=== PATIENT | male | born 1985 | race Caucasian/White ===

== ENCOUNTER 2017-09-17 14:11 | Emergency (ER) | payer SELFPAY ==
[2017-09-17 14:16] VITALS: BP 125/59
[2017-09-17 14:21] VITALS: BMI 29.8
--- NOTE | 2017-09-17 14:37 | DR.MBACK ---
HPI - Time Seen Time seen: 14:30 - PCP Primary Care Physician: NFD - Complaint Chief Complaint Doctors Comments: He states the initiating factoe was that he slid while in a shower, Pain is described as sharp and is non-radiating. 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 He does not have impairment of urination or BM. Chief Complaint:: PATIENT C/O LOWER AND MIDDLE BACK PAIN THAT STARTED 1 WEEK AGO. PATIENT STATES THAT THE PAIN IS WORSE WHEN MOVING Self Treatment fo Chief Complaint: ALEVE AND EXTRA STRENGTH TYLENOL - Reviewed Nurses Notes Review: Yes - Source History Provided: Patient - Mode of Arrival Mode of Arrival: Ambulatory - Timing Onset of Chief Complaint: 09/10/17 - Modifying Factors Worsened By: Twisting PMH - PMH Past Medical History: Yes Past Medical History: Headaches Past Medical History Comment: HYPERLIPIDEMIA Past Surgical History: No - Family History History of Family Medical Conditions: Yes Family Medical History: Diabetes Mellitus Family Medical History Comment: SEIZURES - Social History Alcohol Use: None Do you use any recreational Drugs:: No Lives With: Family Lives Where: Home - infectious screening In the last 2 months have you had wt loss of >10#?: NO Have you had fever, night sweats or hemotysis?: No Have you traveled outside the country in the last 6 months?: No ROS - Review of Systems Constitutional: No Symptoms Reported Eyes: No Symptoms Reported ENTM: No Symptoms Reported Respiratoy: No Symptoms Reported Cardiovascular: No Symptoms Reported Gastrointestinal/Abdominal: No Symptoms Reported Genitourinary: No Symptoms Reported Neurological: No Symptoms Reported Musculoskeletal: Back Pain Integumentary: No Symptoms Reported Hematologic/Lymphatic: No Symptoms Reported Endocrine: No Symptoms Reported Psychiatric: No Symptoms Reported All Other Systems: Reviewed and Negative PE - Vital Signs Vitals: Temperature 97.8 F Pulse Rate [Left Brachial] 73 Pulse Rate 73 Respiratory Rate 22 Blood Pressure [Left Arm] 125/59 Blood Pressure [Right Arm] 165/81 Blood Pressure 125/59 O2 Sat by Pulse Oximetry 97 - General Limitations: No Limitations General Appearance: Alert, In No Apparent Distress - Head Head Exam: Normal Inspection - Eyes Eye exam: Normal Appearance - ENT ENT Exam: Normal Exam - Chest Chest Inspection: Normal Inspection - Respiratory Respiratory Exam: Normal Lung Sounds Bilat - Cardiovascular Cardiovascular Exam: Regular Rate, Normal Rhythm, +S1, +S2 - Abdominal Exam Abdominal Exam: Normal Inspection, Normal Bowel Sounds, Soft - Rectal Rectal Exam: Deferred - Genitourinary Exam: Male: Deferred - Extremities Extremities Exam: Normal Inspection - Back Back Exam: Normal Inspection, Muscle Spasm (lumbar paravertebral muscles) - Neurological Neurological Exam: Alert, Oriented X3 - Psychiatric Psychiatric Exam: Normal Affect, Normal Mood - Skin Skin Exam: Warm, Dry, Intact, Normal Color ROR - XRAY XRAY Interpreted by: Radiologist (No significant bony abnormalities.), Self ( Lt. elbow x-ray: No bone lesion(s).) - Diagnosis Discharge Problem: Back strain - Discharge Plan Disposition: HOME, SELF-CARE Condition: Stable - Follow ups/Referrals Follow ups/Referrals: NFD,None [Primary Care Provider] - 3 days - Instructions Instructions: Muscle Strain, [id number]
[2017-09-17] MEDS ORDERED: TORADOL 60 MG VIAL IM ONE (14:38)
[2017-09-17] MEDS ORDERED: TORADOL 60 MG VIAL ONE (14:48)
--- NOTE | 2017-09-17 14:55 | RAD ---
Examination: Lumbar spine, AP and lateral views History: Back pain 1 week ago Findings: Normal appearance of vertebrae, disc spaces and sacroiliac joints. Alignment is anatomic. N o fracture, significant degenerative change or bone destruction identified. Impression: No acute or significant findings lumbar spine. Reported By:
== END 2017-09-17 15:45 | disposition home or self-care (01) ==
LOC: ER 14:11
DX: S39.012A Strain of muscle, fascia and tendon of lower back, initial encounter (principal); Y33.XXXA Other specified events, undetermined intent, initial encounter; Y92.9 Unspecified place or not applicable
CPT/HCPCS: 72100; 96372; 99282; J1885